=== PATIENT | female | born 1995 | race Caucasian/White ===

== ENCOUNTER 2019-03-30 22:26 | Emergency (ER) | payer OTHER ==
[~2019-03-30] VITALS: Ht 165.1 cm; Wt 88.0 kg
[2019-03-30 22:50] VITALS: BP 122/75
--- NOTE | 2019-03-30 22:54 | NUR ---
24 Y/O FEMALE PRESENTS TO ED WITH C/O N/V/D X3 DAYS. STATES UNABLE TO KEEP FOOD/FLUIDS DOWN. NO ABD PAIN. PT IS 21 WEEKS . AFEBRILE. VSS. ABD ROUND, SOFT, NONTENDER. ER MD AWARE. CONTINUE TO MONITOR.
--- NOTE | 2019-03-30 22:54 | NUR ---
PT TRIAGED, SENT BACK TO LOBBY AWAITING FOR BED
--- NOTE | 2019-03-30 23:25 | NUR ---
PT AMBULATED TO BED 11.
[2019-03-30] MEDS ORDERED: ONDANSETRON 4 MG/2 ML VIAL IVP ONE (23:45)
[2019-03-30] MEDS ORDERED: NACL 0.9% 1,000 ML IV ONE (23:45)
[2019-03-31 00:10] LABS: BASOPHILS % (AUTO) 0.4 % (0.0-2.0); EOSINOPHILS # (AUTO) 0.1 K/uL (0-0.4); EOSINOPHILS % (AUTO) 1.5 % (0.0-4.0); HEMATOCRIT 41.7 % (36-48); HEMOGLOBIN 14.2 g/dL (12.0-16.0); LYMPHOCYTES # (AUTO) 1.8 K/uL (2.5-16.5); LYMPHOCYTES % (AUTO) 20.5 % (20.5-51.1); MEAN CORPUSCULAR HEMOGLOBIN 31 pg (27-31); MEAN CORPUSCULAR HGB CONC 34 g/dL (33-37); MEAN CORPUSCULAR VOLUME 90.1 fL (80-94); MONOCYTES # (AUTO) 0.5 K/uL (0.8-1.0); MONOCYTES % (AUTO) 6.1 % (1.7-9.3); NEUTROPHILS # (AUTO) 6.2 K/uL (1.8-7.7); NEUTROPHILS % (AUTO) 71.5 % (42.2-75.2); PLATELET COUNT (AUTO) 253 K/uL (140-450); RED BLOOD CELL COUNT(AUTO) 4.63 MIL/uL (4.20-5.40); RED CELL DISTRIBUTION WIDTH 13.9 % (11.6-13.7); WHITE BLOOD COUNT (AUTO) 8.7 K/uL (4.8-10.8)
[2019-03-31 00:12] LABS: ANION GAP 12.8 (8-16); CARBON DIOXIDE 23.6 mmol/L (21-32); CREATININE 0.6 mg/dL (0.6-1.3); POTASSIUM 3.4 mmol/L (3.5-5.1)
[2019-03-31 00:18] LABS: TOTAL BILIRUBIN 0.2 mg/dL (0.0-1.0)
[2019-03-31] MEDS ORDERED: NACL 0.9% 1,000 ML IV ONE (01:35)
[2019-03-31 01:56] LABS: APPEARANCE,URINE CLEAR (CLEAR); BILIRUBIN,URINE NEGATIVE (NEGATIVE); BLOOD, URINE NEGATIVE (NEGATIVE); COLOR,URINE YELLOW (YELLOW); LEUKOCYTE ESTERASE ,URINE NEGATIVE (NEGATIVE); NITRITE, URINE NEGATIVE (NEGATIVE); UGLUCOSE NEGATIVE (NEGATIVE)
--- NOTE | 2019-03-31 02:06 | NUR ---
STARTED PT ON 2ND BOLUS OF 1000 ML. NO SIGNS OF ACUTE DISTRESS NOTED. DENIES NAUSEA/VOMITING.
[2019-03-31 03:36] VITALS: BP 121/74
--- NOTE | 2019-03-31 03:36 | NUR ---
DISCHARGE PAPERS GIVEN TO PT. PT STATES RELIEF. NO PAIN. NO NAUSEA. VSS. RX OF REGLAN GIVEN. SIDE EFFECTS EXPLAINED. INSTRUCTED TO F/U WITH PCP AND WHEN TO RETURN TO ER. PT VERBALLIZED UNDERSTANDING OF DC INSTRUCTIONS. ALL QUESTIONS ANSWERED.
== END 2019-03-31 03:36 | disposition home or self-care (01) ==
LOC: MED 22:26
DX: O21.8 Other vomiting complicating pregnancy (principal); O26.892 Other specified pregnancy related conditions, second trimester; E86.0 Dehydration; Z3A.18 18 weeks gestation of pregnancy
CPT/HCPCS: 36415; 80053; 81003; 81025; 83690; 85025; 96361; 96374; 99283; J2405; J7030

== ENCOUNTER 2019-05-31 11:50 | Observation (INO) | payer OTHER ==
[~2019-05-31] VITALS: Ht 165.1 cm; Wt 83.9 kg
[2019-05-31] MEDS ORDERED: PREN-380 PO (12:30)
[2019-05-31] MEDS ORDERED: CALC625T27 PO (12:30)
[2019-05-31] MEDS ORDERED: FERR325E14 PO (12:30)
== END 2019-05-31 15:00 | disposition home or self-care (01) ==
LOC: MLD 11:50
PROVIDERS: ADMIT Obstetrics & Gynecology; ATTEND Obstetrics & Gynecology
DX: O36.8120 Decreased fetal movements, second trimester, not applicable or unspecified (principal); O26.852 Spotting complicating pregnancy, second trimester; Z3A.26 26 weeks gestation of pregnancy
CPT/HCPCS: 76815; 81000; G0378; Q0092

== ENCOUNTER 2019-06-10 08:57 | Emergency (ER) | payer OTHER ==
[~2019-06-10] VITALS: Ht 170.2 cm; Wt 81.6 kg
[~2019-06-10 08:57] MED LIST: CALC625T27 PO; FERR325E14 PO; PREN-380 PO
[2019-06-10 09:02] VITALS: BP 116/70
--- NOTE | 2019-06-10 09:06 | NUR ---
24 y/o f with c/c of sore throat and bilateral ear pain x2 days. per pt not up to date with flu shot, family sick at home. per pt nka. no medical hx. no rx. denies n/d. per pt slight vomiting due to sore throat. side rail x1. family at bedside.
[2019-06-10 10:19] VITALS: BP 128/76
--- NOTE | 2019-06-10 10:19 | NUR ---
Patient discharged with v/s stable. Written and verbal after care instructions given and explained. Patient verbalized understanding. Ambulatory with steady gait. All questions addressed prior to discharge. Advised to follow up with PMD.
== END 2019-06-10 10:19 | disposition home or self-care (01) ==
LOC: MED 08:57
DX: B34.9 Viral infection, unspecified (principal); Z79.899 Other long term (current) drug therapy
CPT/HCPCS: 99281

== ENCOUNTER 2022-08-26 07:37 | Emergency (ER) | payer OTHER ==
[~2022-08-26] VITALS: Ht 165.1 cm; Wt 90.7 kg
[2022-08-26 07:58] VITALS: BP 140/74
--- NOTE | 2022-08-26 08:05 | NUR ---
ROOMED IN ER 11.
--- NOTE | 2022-08-26 08:05 | NUR ---
RIGHT EARACHE WITH NO DISCHARGES, SORE THROAT ONSET YESTERDAY. DENIES COUGH, DENIES FEVER. RATES PAIN AT 10/10. PSH: RIGHT INNER TUBE PLACED DECEMBER 2020 MEDS: NONE ALLERGIES: NKA
[2022-08-26] MEDS ORDERED: KETOROLAC 60 MG/2 ML VIAL IM ONE (08:20)
[2022-08-26] MEDS ORDERED: IBUP-2213 PO (08:33)
[2022-08-26] MEDS ORDERED: PRED20TA5 PO (08:33)
--- NOTE | 2022-08-26 08:40 | NUR ---
27 Y/O FEMALE BIB SELF C/O RIGHT EAR ACHE AND PAIN 03/25 TODAY. STATES A SORE THROAT AND DIFFICULTY SWALLOWING. DENIES ANY MEDICATION FOR PAIN. NKA PMH: DENIES
--- NOTE | 2022-08-26 08:45 | NUR ---
Patient discharged with v/s stable. Written and verbal after care instructions ABOUT UPPER RESPIRATORY INFECTION, SORE THROAT AND EARACHE given and explained. Patient alert, oriented and verbalized understanding of instructions. Ambulatory with steady gait. All questions addressed prior to discharge. ID band removed. Patient advised to follow up with PMD. Rx of PREDNISONE, MOTRIN given. Patient educated on indication of medication including possible reaction and side effects. Opportunity to ask questions provided and answered.
== END 2022-08-26 08:45 | disposition home or self-care (01) ==
LOC: MED 07:37
DX: J06.9 Acute upper respiratory infection, unspecified (principal); H92.01 Otalgia, right ear; Z79.899 Other long term (current) drug therapy
CPT/HCPCS: 81025; 96372; 99283; J1885